=== PATIENT | female | born 1970 | race Caucasian/White ===

== ENCOUNTER → 2019-09-12 | Outpatient (CLI) | payer BC | LOC: RAD 11:37 | DX: M79.601 Pain in right arm (principal); Z12.39 Encounter for other screening for malignant neoplasm of breast; H40.1190 Primary open-angle glaucoma, unspecified eye, stage unspecified; Z76.89 Persons encountering health services in other specified circumstances ==

== ENCOUNTER → 2019-09-17 | Outpatient (CLI) | payer BC | LOC: MAMMO 11:21 | DX: Z12.31 Encounter for screening mammogram for malignant neoplasm of breast (principal) ==

== ENCOUNTER → 2020-08-26 | Outpatient (CLI) | payer BC ==
[2020-08-26 14:47] LABS: BASO # 0.02 (0.02-0.10); EOS # 0.25 (0.04-0.40); EOS % 2.8 % (1.0-5.0); HEMATOCRIT 33.9 % (37.0-47.0); HEMOGLOBIN 10.1 g/dL (12.5-16.0); LYMPH# 2.62 (1.50-4.00); MEAN CELL VOLUME 72 fl (78-100); MEAN CORPUSCULAR HEMOGLOBIN 22 pg (27-31); MEAN CORPUSCULAR HGB CONC 30 g/dL (33-37); MEAN PLATELET VOLUME 9.1 fl (7.4-10.4); MONO # 0.51 (0.20-0.80); NEU # 5.63 (1.40-6.50); PLATELET COUNT 458 K/mm3 (130-400); RED CELL DISTRIBUTION WIDTH 17.9 % (11.5-14.5); WHITE BLOOD COUNT 9.1 K/mm3 (4.8-10.8)
[2020-08-26 14:56] LABS: POTASSIUM 3.9 mmol/L (3.5-5.1)
[2020-08-26 14:57] LABS: ALBUMIN 4.2 g/dL (3.5-5.0)
[2020-08-26 14:58] LABS: CALCIUM 9.1 mg/dL (8.3-10.5)
[2020-08-26 14:59] LABS: TOTAL PROTEIN 7.4 g/dL (6.4-8.3)
[2020-08-26 15:01] LABS: TOTAL BILIRUBIN 0.3 mg/dL (0.2-1.2)
[2020-08-26 15:07] LABS: MAGNESIUM 1.8 mg/dL (1.60-2.60)
== END ==
LOC: LAB 14:23
PROVIDERS: Physician Assistant
DX: Z13.1 Encounter for screening for diabetes mellitus (principal); R25.2 Cramp and spasm; R42 Dizziness and giddiness; E78.5 Hyperlipidemia, unspecified

== ENCOUNTER → 2020-10-27 | Outpatient (CLI) | payer BC ==
[2020-10-27 10:20] LABS: BASO # 0.04 (0.02-0.10); EOS # 0.22 (0.04-0.40); HEMATOCRIT 37.8 % (37.0-47.0); HEMOGLOBIN 11.3 g/dL (12.5-16.0); LYMPH# 2.36 (1.50-4.00); MEAN CELL VOLUME 73 fl (78-100); MEAN CORPUSCULAR HEMOGLOBIN 22 pg (27-31); MEAN CORPUSCULAR HGB CONC 30 g/dL (33-37); MEAN PLATELET VOLUME 8.8 fl (7.4-10.4); MONO # 0.42 (0.20-0.80); NEU # 4.17 (1.40-6.50); PLATELET COUNT 428 K/mm3 (130-400); RED BLOOD COUNT 5.18 M/mm3 (4.10-5.30); RED CELL DISTRIBUTION WIDTH 16.9 % (11.5-14.5); WHITE BLOOD COUNT 7.2 K/mm3 (4.8-10.8)
[2020-10-27 10:44] LABS: ALBUMIN 4.3 g/dL (3.5-5.0); POTASSIUM 4.3 mmol/L (3.5-5.1)
[2020-10-27 10:46] LABS: CALCIUM 9.3 mg/dL (8.3-10.5)
[2020-10-27 10:47] LABS: TOTAL PROTEIN 8.1 g/dL (6.4-8.3)
[2020-10-27 10:49] LABS: TOTAL BILIRUBIN 0.4 mg/dL (0.2-1.2)
[2020-10-27 11:03] LABS: URINE APPEARANCE HAZY; URINE BILIRUBIN NEGATIVE (NEGATIVE); URINE BLOOD NEGATIVE (NEGATIVE); URINE COLOR YELLOW; URINE GLUCOSE NEGATIVE (NEGATIVE); URINE KETONE NEGATIVE (NEGATIVE); URINE LEUKOCYTE ESTERASE TRACE (NEGATIVE); URINE MUCUS PRESENT (NOT PRESENT); URINE NITRATE NEGATIVE (NEGATIVE); URINE PROTEIN(semi-quant) NEGATIVE (NEGATIVE); URINE UROBILINOGEN NORMAL (NORMAL)
== END ==
LOC: RAD 09:56
PROVIDERS: Physician Assistant
DX: Z01.818 Encounter for other preprocedural examination (principal)

== ENCOUNTER → 2020-10-29 | Outpatient (CLI) | payer BC ==
[2020-10-29 11:34] LABS: URINE APPEARANCE CLEAR; URINE BILIRUBIN NEGATIVE (NEGATIVE); URINE BLOOD NEGATIVE (NEGATIVE); URINE COLOR YELLOW; URINE GLUCOSE NEGATIVE (NEGATIVE); URINE KETONE NEGATIVE (NEGATIVE); URINE LEUKOCYTE ESTERASE NEGATIVE (NEGATIVE); URINE NITRATE NEGATIVE (NEGATIVE); URINE PROTEIN(semi-quant) NEGATIVE (NEGATIVE); URINE UROBILINOGEN NORMAL (NORMAL); URINE WBC 0-1 /hpf (0-3)
== END ==
LOC: LAB 08:48
PROVIDERS: Physician Assistant
DX: R82.79 Other abnormal findings on microbiological examination of urine (principal)

== ENCOUNTER → 2021-08-03 | Outpatient (CLI) | payer BC ==
[2021-08-03 13:48] LABS: BASO # 0.03 K/mm3 (0.02-0.10); EOS % 6.3 % (1.0-5.0); HEMATOCRIT 40.4 % (37.0-47.0); HEMOGLOBIN 12.1 g/dL (12.5-16.0); LYMPH# 2.44 K/mm3 (1.50-4.00); MEAN CELL VOLUME 76 fl (78-100); MEAN CORPUSCULAR HEMOGLOBIN 23 pg (27-31); MEAN CORPUSCULAR HGB CONC 30 g/dL (33-37); MEAN PLATELET VOLUME 8.8 fl (7.4-10.4); MONO # 0.47 K/mm3 (0.20-0.80); PLATELET COUNT 371 K/mm3 (130-400); RED CELL DISTRIBUTION WIDTH 16.7 % (11.5-14.5)
[2021-08-03 13:57] LABS: ALBUMIN 4.4 g/dL (3.5-5.0)
[2021-08-03 13:59] LABS: CALCIUM 9.6 mg/dL (8.3-10.5)
[2021-08-03 14:00] LABS: TOTAL PROTEIN 7.8 g/dL (6.4-8.3)
[2021-08-03 14:02] LABS: TOTAL BILIRUBIN 0.5 mg/dL (0.2-1.2)
[2021-08-03 14:22] LABS: URINE APPEARANCE CLEAR; URINE COLOR YELLOW
[2021-08-03 14:23] LABS: URINE BILIRUBIN 1+ (NEGATIVE); URINE BLOOD TRACE (NEGATIVE); URINE GLUCOSE NEGATIVE (NEGATIVE); URINE KETONE NEGATIVE (NEGATIVE); URINE LEUKOCYTE ESTERASE TRACE (NEGATIVE); URINE MUCUS PRESENT (NOT PRESENT); URINE NITRATE NEGATIVE (NEGATIVE); URINE PROTEIN(semi-quant) TRACE (NEGATIVE); URINE UROBILINOGEN NORMAL (NORMAL)
== END ==
LOC: LAB 13:30
PROVIDERS: Nurse Practitioner Family
DX: R42 Dizziness and giddiness (principal); R51.9 Headache, unspecified

== ENCOUNTER → 2023-02-19 | Outpatient (CLI) | payer BC | LOC: MAMMO 14:52 | DX: Z12.31 Encounter for screening mammogram for malignant neoplasm of breast (principal) ==

== ENCOUNTER → 2024-04-24 | Outpatient (CLI) | payer OTHER ==
[2024-04-24 08:15] LABS: BASO # 0.02 K/mm3 (0.02-0.10); EOS # 0.29 K/mm3 (0.04-0.40); HEMATOCRIT 45.4 % (37.0-47.0); LYMPH# 2.22 K/mm3 (1.50-4.00); MEAN CELL VOLUME 88 fl (78-100); MEAN CORPUSCULAR HEMOGLOBIN 29 pg (27-31); MEAN CORPUSCULAR HGB CONC 33 g/dL (33-37); MEAN PLATELET VOLUME 9.2 fl (7.4-10.4); MONO # 0.39 K/mm3 (0.20-0.80); NEU # 4.29 K/mm3 (1.40-6.50); PLATELET COUNT 328 K/mm3 (130-400); RED BLOOD COUNT 5.17 M/mm3 (4.10-5.30); RED CELL DISTRIBUTION WIDTH 13.1 % (11.5-14.5); WHITE BLOOD COUNT 7.2 K/mm3 (4.8-10.8)
[2024-04-24 08:23] LABS: ALBUMIN 4.4 g/dL (3.5-5.0)
[2024-04-24 08:26] LABS: TOTAL PROTEIN 7.4 g/dL (6.4-8.3)
[2024-04-24 08:28] LABS: TOTAL BILIRUBIN 0.5 mg/dL (0.2-1.2)
== END ==
LOC: LAB 07:59
PROVIDERS: Physician Assistant
DX: Z13.29 Encounter for screening for other suspected endocrine disorder (principal); Z13.1 Encounter for screening for diabetes mellitus; I10 Essential (primary) hypertension; D64.9 Anemia, unspecified; E78.5 Hyperlipidemia, unspecified; K90.9 Intestinal malabsorption, unspecified